=== PATIENT | female | born 1950 | race Caucasian/White ===

== ENCOUNTER 2017-08-16 09:50 | Emergency (ER) | payer MEDICARE ==
[~2017-08-16] VITALS: Ht 180.3 cm; Wt 101.2 kg
[~2017-08-16 09:50] MED LIST: ADVAIR 250-501 EACH; GLUCOTROL5 MG PO; LEVOTHYROXINE25 MCG PO; NORCO 10MG-325MG1 EA PO; PRILOSEC20 MG PO; PROMETHEGAN12.5 MG PO; VENTOLIN HFA18 GM
[2017-08-16] MEDS ORDERED: LANTUS 3ML100 UNITS/ (10:43)
[2017-08-16] MEDS ORDERED: XYZAL5 MG PO (11:02)
[2017-08-16] MEDS ORDERED: NASONEX17 GM (11:02)
[2017-08-16] MEDS ORDERED: BROMFED DM COU118 ML PO (11:02)
[2017-08-16 11:24] VITALS: BP 128/80
== END 2017-08-16 11:10 | disposition home or self-care (01) ==
LOC: FSED 09:50
DX: R50.9 Fever, unspecified (principal); R05 Cough; J00 Acute nasopharyngitis [common cold]; I10 Essential (primary) hypertension; E11.9 Type 2 diabetes mellitus without complications; J45.909 Unspecified asthma, uncomplicated
CPT/HCPCS: 87400; 99283

== ENCOUNTER 2018-06-25 20:13 | Observation (INO) | payer MEDICARE, OTHER ==
[~2018-06-25] VITALS: Ht 180.3 cm; Wt 99.8 kg
[2018-06-25 01:50] VITALS: BP 147/67
[~2018-06-25 20:13] MED LIST changes: +BASAGLAR SC; +BENTYL PO; +BENTYL10 MG/1 ML IV; +BROMFED DM COU118 ML PO; +CENTRUM SILVER1 EAC3 PO; +LANTUS 3ML100 UNITS/; +METOCLOPRAMIDE10 MG PO; +MONTELUKAST SOD10 MG PO; +NASONEX17 GM; +NOVOLOG100 UNIT/1 SC; +PANTOPRAZOLE SO40 MG PO; +VENTOLIN HFA18 GM INH; +XYZAL5 MG PO
--- OUTSIDE RECORDS SUMMARY | 2018-06-25 20:16 | XMS REPORT | Summary of Care ---
Author Author [facility] Address [address] [place] [address] Phone Unavailable Care Team Providers Care Printer Floor Covering Assistant Name Role Phone VELVET Lazar, PVAAN Unavailable Unavailable REJI Riley, THU Unavailable Unavailable MIKAYLA PHILIP [place], SHORTY AMARO Unavailable Unavailable MIKAYLA Riley, SHORTY Unavailable Unavailable Reji PHILIP, Thu Unavailable Unavailable JONNATHAN NI [place], MARTINEZ Unavailable Unavailable Unavailable Unavailable Functional Status Name Dates Details Functional status health issues are not documented Status: Name Dates Details Cognitive status health issues are not documented Status: Problems Name Dates Details Symptomatic menopausal or female climacteric states (627.2, N95.1) Status: Active Major depressive disorder, recurrent, moderate (296.32, F33.1) Status: Active Post-menopausal (V49.81, Z78.0) Status: Active Need for pneumococcal vaccination (V03.82, Z23) Status: Active 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, 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 Encounter for mini-mental status examination Status: Active Intermittent asthma (493.90, J45.20) Status: Active Flu vaccine need (V04.81, Z23) Status: Active Inflammatory polyarthritis (714.9, M06.4) Status: Active Annual physical exam (V70.0, Z00.00) Status: Active Chronic migraine (346.70, G43.709) Status: Active Fibromyalgia (729.1, M79.7) Status: Active Counseling regarding advanced directives and goals of care (V65.49, Z71.89) Status: Active GERD without esophagitis (530.81, K21.9) Status: Active Generalized osteoarthritis (715.00, M15.9) Status: Active Obstructive sleep apnea (327.23, G47.33) Status: Active Allergic bronchitis (493.90, J45.909) Status: Active Breast cancer screening (V76.10, Z12.31) Status: Active Diabetes mellitus type 2, uncontrolled (250.02, E11.65) Status: Active Peripheral neuropathy (356.9, G62.9) Status: Active Vitamin D deficiency, unspecified (268.9, E55.9) Status: Active Peripheral vertigo of both ears (386.10, H81.393) Status: Active Adverse reaction to SUNIL-I (angiotensin-converting enzyme inhibitor) (E942.6, T46.4X5A) Status: Active Mixed hyperlipidemia (272.2, E78.2) Status: Active 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, 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) Status: Active Iron deficiency anemia secondary to inadequate dietary iron intake (280.1, D50.8) Status: Active Acute bronchitis due to infection (466.0, J20.8) Status: Active Abnormal AST and ALT (790.4, R74.8) Status: Active Allergic rhinitis due to pollen (477.0, J30.1) Status: Active Essential (primary) hypertension (401.9, I10) Status: Active Acute UTI (599.0, N39.0) Status: Active Diabetic polyneuropathy associated with type 2 diabetes mellitus (250.60, E11.42) Status: Active Medications Name Dates Details Lantus SoloStar 100 UNIT/ML Subcutaneous Solution Pen-injector inject 30 U SC qHS MDD:50 U Quantity: 1 THU MENDOZA M.D. * Start : 12-Jun-2014 Active 5 x 3 ML Pen BD Pen Needle Diamante U/F 32G X 4 MM use as directed to inject insulin once daily * Quantity: 100 Refills: 1 THU MENDOZA M.D. * Start : 12-Jun-2014 Active HydroCHLOROthiazide 12.5 MG Oral Tablet Take 1 tab po daily if BP over 140 * Quantity: 90 Refills: 1 VELVET Forman.PAVAN Menendez * Start : 28-Dec-2015 Active Montelukast Sodium 10 MG Oral Tablet TAKE 1 TABLET AT BEDTIME. * Refills: 0 Active Ventolin HFA 108 (90 Base) MCG/ACT Inhalation Aerosol Solution INHALE 1 TO 2 PUFFS EVERY 4 TO 6 HOURS NEEDED. * Quantity: 1 Refills: 2 VELVET N.P., PAVAN Active 18 GM Inhaler Advair Diskus 250-50 MCG/DOSE Inhalation Aerosol Powder Breath Activated INHALE 1 PUFF TWICE DAILY...BRKFST & Supper. Rinse mouith after use. * Quantity: 1 Refills: 6 VELVET N.P., PAVAN Active 60 Inhaler Pack Azelastine HCl - 0.15 % Nasal Solution 1 spray each nostril BID for allergies * Quantity: 1 Refills: 8 VERDIN N.P., PAVAN * Start : 21-Jul-2017 Active 30 ML Convoy Btl Centrum Silver 50+Women Oral Tablet TAKE 1 TABLET DAILY. * Refills: 0 VERDIN N.P., PAVAN * Start : 21-Jul-2017 Active Sudafed PE Congestion 10 MG Oral Tablet TAKE 1 TABLET EVERY 4 HOURS NEEDED for head, sinus, ear congestion.. * Quantity: 60 Refills: 1 VELVET N.P., PAVAN * Start : 21-Jul-2017 Active Claritin 10 MG Oral Tablet 1 TAB ORALLY EVERY DAY FOR 3-4 WEEKS AT A TIME FOR ALLERGIES. REPEAT NEEDED. * Quantity: 33 Refills: 0 VELVET N.P., PAVAN * Start : 21-Jul-2017 Active GlipiZIDE 10 MG Oral Tablet TAKE 2 TABLET BY MOUTH WITH BREAKFAST AND 1 TABLET BY MOUTH WITH DINNER * Quantity: 90 Refills: 2 THU MENDOZA M.D. * Start : 16-Jun-2017 Active Pantoprazole Sodium 40 MG Oral Tablet Delayed Release TAKE 1 TABLET BY MOUTH EVERY DAY * Quantity: 90 Refills: 0 VELVET N.P., PAVAN * Start : 22-Nov-2016 Active Saeid Microlet Lancets Check BG 2x a day * Quantity: 200 Refills: 3 VELVET N.P., PAVAN * Start : 01-Jan-2014 Active Saeid Contour Next Test In Vitro Strip Check BG 2x a day * Quantity: 200 Refills: 1 THU MENDOZA M.D. * Start : 01-Jan-2014 Active Allergies and Adverse Reactions Name Dates Details Acetaminophen TABS (Allergy) Status: Active Baclofen TABS (Allergy) Status: Active Corgard TABS (Adverse Event) Reaction: Vomiting, Headache, Seizures Status: Active dexamethasone (Allergy) Status: Active Iodine SOLN (Allergy) Status: Active Naproxen TABS (Adverse Event) Reaction: Vomiting Status: Active Zoloft TABS (Adverse Event) Reaction: Other Status: Active Past Medical History Name Dates Details History of abdominal pain (V13.89, Z87.898) Status: Resolved History of Abdominal pain, LLQ (left lower quadrant) (789.04, R10.32) Status: Resolved History of allergic rhinitis (V12.69, Z87.09) Status: Resolved History of Boil (680.9, L02.92) Status: Resolved History of candidal vulvovaginitis (V13.29, Z86.19) Status: Resolved History of chest pain (V13.89, Z87.898) Status: Resolved History of Chronic pain (338.29, G89.29) Status: Resolved History of Common migraine without aura (346.10, G43.009) Status: Resolved History of Contusion of left hand (923.20, S60.222A) Status: Resolved History of Dandruff (690.18, L21.0) Status: Resolved History of Decreased urination (788.5, R34) Status: Resolved History of dizziness (V13.89, Z87.898) Status: Resolved History of excessive sweating (V13.89, Z87.898) Status: Resolved History of fatigue (V13.89, Z87.898) Status: Resolved History of fatigue (V13.89, Z87.898) Status: Resolved History of fibromyositis (V13.59, Z87.39) Status: Resolved History of Flushing (782.62, R23.2) Status: Resolved History of Furuncle of abdominal wall (680.2, L02.221) Status: Resolved History of Grief reaction (309.0, F43.20) Status: Resolved History of Hair loss (704.00, L65.9) Status: Resolved History of hearing loss (V12.49, Z86.69) Status: Resolved History of herpes simplex infection (V12.09, Z86.19) Status: Resolved History of Intermittent asthma (493.90, J45.20) Status: Resolved History of labyrinthitis (V12.49, Z86.69) Status: Resolved History of low back pain (V13.59, Z87.39) Status: Resolved History of Low back pain, episodic (724.2, M54.5) Status: Resolved History of Lower abdominal pain (789.09, R10.30) Status: Resolved History of Lyme disease (088.81, A69.20) Status: Resolved History of Migraine without status migrainosus, not intractable (346.90, G43.909) Status: Resolved History of mitral valve disorder (V12.59, Z86.79) Status: Resolved History of nausea (V12.79, Z87.898) Status: Resolved History of nausea and vomiting (V12.79, Z87.898) Status: Resolved History of Neck muscle spasm (728.85, M62.838) Status: Resolved History of neck pain (V13.59, Z87.39) Status: Resolved History of Nevus (216.9, D22.9) Status: Resolved History of onychomycosis (V12.09, Z86.19) Status: Resolved History of Other chronic gastritis (535.10, K29.50) Status: Resolved History of Pain in toe of right foot (729.5, M79.674) Status: Resolved History of Pain, foot, right, chronic (729.5, M79.671) Status: Resolved History of paronychia of finger (V13.3, Z87.2) Status: Resolved History of Pedal edema (782.3, R60.0) Status: Resolved History of Pulsatile tinnitus, left ear (388.30, H93.A2) Status: Resolved History of renal calculi (V13.01, Z87.442) Status: Resolved History of shortness of breath (V13.89, Z87.898) Status: Resolved History of Skin lesion (709.9, L98.9) Status: Resolved History of sleep apnea (V13.89, Z86.69) Status: Resolved History of tinea cruris (V12.09, Z86.19) Status: Resolved History of tinnitus (V12.49, Z86.69) Status: Resolved History of urinary urgency (V13.00, Z87.448) Status: Resolved 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, 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) Status: Resolved History of West Nile Virus infection (066.40, A92.30) Status: Resolved Personal history of asthma (V12.69, Z87.09) Status: Resolved Procedures Procedure Dates Details History of Tonsillectomy Completed History of Hemorrhoidectomy Completed History of Proximal Subtotal Pancreatectomy (Whipple Procedure) Completed History of Arterial Catheterization Completed History of Arthroscopy Ankle Right Completed History of Neuroplasty Decompression Median Nerve At Carpal Tunnel Completed Immunization Name Dates Details Pneumococcal polysaccharide vaccine, 23 valent on: Aug-2008 Influenza on: 23-May-2011 Zoster (Zostavax) on: 27-Dec-2011 Fluzone INJ Lot #: [id number] on: 12-May-2014 Fluzone Quadrivalent 0.5 ML Intramuscular Suspension Lot #: [id number] on: 01-Apr-2015 Prevnar 13 Intramuscular Suspension Lot #: [id number] on: 10-Apr-2015 Fluzone High-Dose SUSP Lot #: [id number] on: 24-Jun-2016 Pneumococcal polysaccharide vaccine, 23 valent Lot #: [id number] on: 09-Sep-2016 Fluzone Quadrivalent 0.5 ML Intramuscular Suspension Lot #: [id number] on: 21-Jul-2017 Fluzone Quadrivalent Intramuscular Suspension Lot #: [id number] on: 15-Aug-2017 Family History Name Dates Details Family history of Hypertension (V17.49) Status: Active Family history of Diabetes Mellitus (V18.0) Status: Active Family history of Coronary Artery Disease (V17.49) Status: Active Family history of arthritis (V17.7, Z82.61) Status: Active Name Dates Details Family history of Hypertension (V17.49) Status: Active Family history of Coronary Artery Disease (V17.49) Status: Active Family history of Cancer Status: Active Family history of Diabetes mellitus (250.00, E11.9) Status: Active Family history of Hyperthyroidism (242.90, E05.90) Status: Active Family history of arthritis (V17.7, Z82.61) Status: Active Name Dates Details Family history of Diabetes mellitus (250.00, E11.9) Status: Active Social History Name Dates Details - Status: Name Dates Details Former smoker Vital Signs Date Test Result Details No Known Vitals to report Results Date Description Value Details Results not documented Plan of Care Name Dates Details Planned Observations Planned Goals not documented Instructions Name Dates Details Instructions not documented Encounters Appointment; RAKESH MAGUIRE M.D. Encounter Diagnosis: Problem not documented On: 20-Oct-2015 13:00 Appointment; WALLY GARCIA P.A. Encounter Diagnosis: Problem not documented On: 28-Oct-2015 9:45 Appointment; THU MENDOZA M.D. Encounter Diagnosis: Problem not documented On: 11-Nov-2015 9:30 Appointment; WALLY GARCIA P.A. Encounter Diagnosis: Problem not documented On: 03-Dec-2015 10:15 Appointment; PEARL FELICIANO M.D. Encounter Diagnosis: Problem not documented On: 21-Dec-2015 9:00 Appointment; VIRAL ROSAS D.O. Encounter Diagnosis: Problem not documented On: 28-Dec-2015 12:30 Appointment; BETTY MIMS M.D. Encounter Diagnosis: Problem not documented On: 04-Jan-2016 10:30 Appointment; VIRAL ROSAS D.O. Encounter Diagnosis: Problem not documented On: 01-Feb-2016 10:15 Appointment; OSMAR BUSH M.D. Encounter Diagnosis: Problem not documented On: 17-Feb-2016 8:30 Appointment; VIRAL ROSAS D.O. Encounter Diagnosis: Problem not documented On: 29-Feb-2016 8:00 Appointment; ARAM OROZCO P.A. Encounter Diagnosis: Problem not documented On: 12-Mar-2016 9:30 Appointment; PAVAN VERDIN NP Encounter Diagnosis: Problem not documented On: 05-Apr-2016 7:45 Appointment; MARTINEZ DE SANTIAGO NP Encounter Diagnosis: Problem not documented On: 21-May-2016 11:30 Appointment; MARTINEZ DE SANTIAGO NP Encounter Diagnosis: Problem not documented On: 25-May-2016 13:45 Appointment; ASHISH WANG NP Encounter Diagnosis: Problem not documented On: 07-Jun-2016 14:30 Appointment; ASHISH WANG NP Encounter Diagnosis: Problem not documented On: 24-Jun-2016 15:30 Appointment; PAVAN VERDIN NP Encounter Diagnosis: Problem not documented On: 06-Jul-2016 7:30 Appointment; SUSANNAH RICHMOND M.D. Encounter Diagnosis: Problem not documented On: 18-Jul-2016 14:45 Appointment; THU MENDOZA M.D. Encounter Diagnosis: Problem not documented On: 27-Jul-2016 9:30 Appointment; MARTINEZ DE SANTIAGO NP Encounter Diagnosis: Problem not documented On: 06-Aug-2016 10:00 Appointment; MARTINEZ DE SANTIAGO NP Encounter Diagnosis: Problem not documented On: 12-Aug-2016 8:15 Appointment; RAKESH MAGUIRE M.D. Encounter Diagnosis: Problem not documented On: 17-Aug-2016 10:30 Appointment; MARTINEZ DE SANTIAGO NP Encounter Diagnosis: Problem not documented On: 09-Sep-2016 9:00 Appointment; PEARL FELICIANO M.D. Encounter Diagnosis: Problem not documented On: 21-Oct-2016 10:30 Appointment; THU MENDOZA M.D. Encounter Diagnosis: Problem not documented On: 26-Oct-2016 9:00 Appointment; WALLY GARCIA P.A. Encounter Diagnosis: Problem not documented On: 02-Jan-2017 13:30 Appointment; THU MENDOZA M.D. Encounter Diagnosis: Problem not documented On: 25-Jan-2017 13:00 Appointment; PEARL FELICIANO M.D. Encounter Diagnosis: Problem not documented On: 05-May-2017 15:00 Appointment; HAYDEN LANTIGUA M.D. Encounter Diagnosis: Problem not documented On: 07-Jul-2017 14:15 Appointment; ASHISH WANG NP Encounter Diagnosis: Problem not documented On: 17-Jul-2017 14:30 Appointment; [facility] ECHO Encounter Diagnosis: Problem not documented On: 21-Jul-2017 11:00 Appointment; PAVAN VERDIN NP Encounter Diagnosis: Problem not documented On: 21-Jul-2017 13:00 Appointment; MAGO SELBY M.D. Encounter Diagnosis: Problem not documented On: 31-Jul-2017 13:40 Appointment; [facility] NUCLEAR Encounter Diagnosis: Problem not documented On: 07-Aug-2017 11:45 Appointment; [facility] Encounter Diagnosis: Problem not documented On: 09-Aug-2017 11:00 Appointment; MAGO SELBY M.D. Encounter Diagnosis: Problem not documented On: 16-Aug-2017 8:40
--- OUTSIDE RECORDS SUMMARY | 2018-06-25 20:16 | XMS REPORT | Continuity of Care Document ---
Author Author [facility] Interface Address Unknown Phone Unavailable Problems Problem Status Onset Date Classification Date Reported Comments Source Medications Medication Details Route Status Patient Instructions Ordering Provider Order Date Source D-Methorphan Hb/P-Epd Hcl/Bpm (Bromfed Dm Cough Syrup) 118 Ml Syrup Every 4 Hours as needed for Cough Active [place] 08/16/2017 [facility] Levocetirizine Dihydrochloride (Xyzal) 5 Mg Tablet Daily Active [place] 08/16/2017 [facility] Mometasone Furoate (Nasonex) 17 Gm [place] Daily Active [place] 08/16/2017 [facility] Acetaminophen/Hydrocodone Bitart ([place] 10MG-325MG*) 1 Ea Tab Q4-6HRS Active [facility] Albuterol Sulfate (Ventolin Hfa) 18 Gm Hfa.aer.ad Active [facility] Fluticasone/Salmeterol (Advair 250-50 Diskus) 1 Each Disk.w.dev Active [facility] Glipizide (Glucotrol) 5 Mg Tablet Rt Daily Active [facility] Insulin Glargine (Lantus 3ML Pen) 100 Units/1 Ml Inj Active [facility] Levothyroxine Sodium 25 Mcg Tablet Rt Daily Active [facility] Omeprazole (Prilosec) 20 Mg Capsule.dr Rt Daily Active [facility] Promethazine Hcl (Promethegan) 12.5 Mg Supp Rt Daily Active [facility] Allergies, Adverse Reactions, Alerts Substance Category Reaction Severity Reaction type Status Date Reported Comments Source iodine Unknown Allergy to Substance Active 08/16/2017 [facility] Acetaminophen Unknown Allergy to Substance Active 08/16/2017 [facility] Methocarbamol affects my asthma Unknown Propensity to adverse reactions Active 08/16/2017 [facility] Baclofen decrease respirations Severe Allergy to Substance Active 08/16/2017 [facility] Nadolol Unknown Allergy to Substance Active 08/16/2017 [facility] Naproxen Unknown Allergy to Substance Active 08/16/2017 [facility] Sertraline Unknown Allergy to Substance Active 08/16/2017 [facility] Tizanidine afects liver - develops flu-like symptoms Intermediate Allergy to Substance Active 08/16/2017 [facility] Celecoxib does not work Unknown Allergy to Substance Active 08/16/2017 [facility] Sitagliptin swelling Severe Propensity to adverse reactions Active 08/16/2017 [facility] Canagliflozin swelling Unknown Propensity to adverse reactions Active 08/16/2017 [facility] Immunizations Immunization Date Given Site Status Last Updated Comments Source Results Order Name Results Value Reference Range Date Interpretation Comments Source Vital Signs Vital Sign Value Date Comments Source Encounters Location Location Details Encounter Type Encounter Number Reason For Visit Attending Provider ADM Date DC Date Status Source Departed Emergency Room [id number] CLEMENTINA MAHMOOD MD 08/16/2017 08/16/2017 [facility] Procedures Procedure Code Date Perfomer Comments Source
[2018-06-25] MEDS ORDERED: ASPIRIN 81 MG CHEW TAB PO ONE ×2 (20:45→23:45)
[2018-06-25 21:07] LABS: BASOPHILS # (AUTO) 0.1 (0.0-0.1); BASOPHILS % 0.7 % (0.0-1.0); EOSINOPHILS # (AUTO) 0.2 (0.0-0.4); EOSINOPHILS % 2.4 % (0.0-6.0); HEMATOCRIT 37.3 % (34.2-44.1); HEMOGLOBIN 12.3 g/dL (12.0-16.0); LYMPHOCYTES # (AUTO) 2.1 (1.0-3.2); LYMPHOCYTES % 31.2 % (18.0-39.1); MEAN CORPUSCULAR HEMOGLOBIN 26.3 pg (28-32); MEAN CORPUSCULAR VOLUME 79.9 fL (81-99); MONOCYTES # (AUTO) 0.3 (0.2-0.8); MONOCYTES % 4.1 % (4.4-11.3); NEUTROPHILS # (AUTO) 4.2 (2.1-6.9); NEUTROPHILS % 61.3 % (38.7-80.0); PLATELET COUNT 308 x10e3/uL (140-360); RED BLOOD COUNT 4.67 x10e6/uL (3.6-5.1); RED CELL DISTRIBUTION WIDTH 13.4 % (11.7-14.4)
--- NOTE | 2018-06-25 21:20 | Diagnostic Imaging Report ---
EXAMINATION: CHEST 2 VIEWS INDICATION: Chest pain with sweating COMPARISON: Chest x-ray 02/09/2009 FINDINGS: PA and lateral views TUBES and LINES: None. LUNGS: The diaphragms are flat. The lungs are well-inflated suggestive of COPD. There is no evidence of pneumonia or pulmonary edema. PLEURA: No pleural effusion or pneumothorax. HEART AND MEDIASTINUM: The heart is normal in size. The aorta is ectatic. BONES AND SOFT TISSUES: Fusion plate in the lower cervical spine is intact. The bones are diffusely demineralized. No focal osseous lesions. Soft tissues are unremarkable. UPPER ABDOMEN: No free air under the diaphragm. IMPRESSION: Pulmonary hyperinflation suggestive of COPD. No acute cardiopulmonary process. Signed by: Dr. Cholo Espinosa MD on 06/25/2018 9:17 PM
[2018-06-25 21:28] LABS: ALANINE AMINOTRANSFERASE 34 IU/L (0-55); ALBUMIN 3.7 g/dL (3.5-5.0); ALBUMIN/GLOBULIN RATIO 1.1 (0.8-2.0); ALKALINE PHOSPHATASE 110 IU/L (40-150); BLOOD UREA NITROGEN 8 mg/dL (7-26); BUN/CREATININE RATIO 11 (6-25); CALCIUM 9.3 mg/dL (8.4-10.2); CARBON DIOXIDE 23 mmol/L (22-29); CHLORIDE 106 mmol/L (98-107); CREATINE KINASE 60 IU/L (29-168); CREATININE, SERUM 0.72 mg/dL (0.57-1.11); EST GLOMERULAR FILTRATION RATE > 60 ML/MIN (60-); GLUCOSE 302 mg/dL (74-118); SODIUM 139 mmol/L (136-145)
[2018-06-25 23:42] LABS: CLARITY,URINE CLEAR (CLEAR); COLOR,URINE YELLOW (YELLOW)
[2018-06-25 23:43] LABS: BILIRUBIN,URINE NEGATIVE (NEGATIVE); KETONES,URINE NEGATIVE (NEGATIVE); LEUKOCYTE ESTERASE ,URINE 1+ (NEGATIVE); NITRITE,URINE NEGATIVE (NEGATIVE); PROTEIN,URINE DIPSTICK NEGATIVE (NEGATIVE); URINE UROBILINOGEN 0.2 mg/dL (0.2 - 1)
--- OUTSIDE RECORDS SUMMARY | 2018-06-25 23:44 | XMS REPORT ---
Author Author [facility] Address Unknown Phone Unavailable Care Team Providers Care Log Feeder Name Role Phone Kady REYNA Unavailable Unavailable Problems This patient has no known problems. Allergies, Adverse Reactions, Alerts This patient has no known allergies or adverse reactions. Medications This patient has no known medications. Results Test Description Test Time Test Comments Text Results Atomic Results Result Comments CHEST 2 VIEWS 2018-06-25 21:16:00 [place] [address] Patient Name: SAMMY PEÑA MR #: [id number] : 1950 Age/Sex: 67/F Req #: [id number] Adm Physician: Ordered by: SEJAL REYNA MD Report #: [id number] Location: ER Room/Bed: Procedure: [id number] DX/CHEST 2 VIEWS Exam Date: 06/25/18 Exam Time: 2100 REPORT STATUS: Signed EXAMINATION: CHEST 2 VIEWS INDICATION: Chest pain with sweating COMPARISON: Chest x-ray 02/09/2009 FINDINGS: PA and lateral views TUBES and LINES: None. LUNGS: The diaphragms are flat. The lungs are well-inflated suggestive of COPD. There is no evidence of pneumonia or pulmonary edema. PLEURA: No pleural effusion or pneumothorax. HEART AND MEDIASTINUM: The heart is normal in size. The aorta is ectatic. BONES AND SOFT TISSUES: Fusion plate in the lower cervical spine is intact. The bones are diffusely demineralized. No focal osseous lesions. Soft tissues are unremarkable. UPPER ABDOMEN: No free air under the diaphragm. IMPRESSION: Pulmonary hyperinflation suggestive of COPD. No acute cardiopulmonary process. Signed by: Dr. Comfort Espinosa MD on 06/25/2018 9:17 PM Dictated By: COMFORT ESPINOSA MD 16 Transcribed By: WALDO on 06/25/182116 COPY TO: SEJAL REYNA MD
[2018-06-25] MEDS ORDERED: MORPHINE SULFATE 2 MG/ML SYR IV PRN (23:45)
[2018-06-25] MEDS ORDERED: SODIUM CHLORIDE FLUSH 10 ML SYR INJ PRN (23:45)
[2018-06-25] MEDS ORDERED: NITROGLYCERIN 0.4 MG SUBL SL PRN (23:45)
[2018-06-25] MEDS ORDERED: DEXTROSE 50% SYRINGE 50 ML IV PRN (23:45)
[2018-06-25 23:59] LABS: BACTERIA,URINE FEW /HPF; EPITHELIAL CELLS,URINE MODERATE /LPF
[2018-06-26] VITALS (8 sets, daily range): BP systolic 107–147; BP diastolic 55–67
[2018-06-26] MEDS: FAMOTIDINE 20 MG/2 ML VIAL IV SCH ×2 (01:10→11:55)
[2018-06-26] MEDS ORDERED: MORPHINE SULFATE INJ 4 MG/ML INJ IV PRN (02:00)
[2018-06-26 06:59] LABS: CREATINE KINASE 46 IU/L (29-168)
[2018-06-26 07:21] LABS: CHOL/HDL RATIO 4.1 (3.0-3.6)
[2018-06-26] MEDS ORDERED: INSULIN REGULAR, HUMAN 100 UNIT/1 ML 3ML VIAL SQ SCH (07:30)
[2018-06-26] MEDS: ASPIRIN 81 MG ENTERIC COATED PO SCH (09:00)
--- NOTE | 2018-06-26 09:41 | NUR ---
pt resting in bed. family at bedside. pt refused aspirin, stated she is scheduled for colonoscopy and told to hold for [address] beal on unit, made aware.
[2018-06-26] MEDS ORDERED: ACETAMINOPHEN 325 MG TAB PO PRN (09:45)
[2018-06-26] MEDS ORDERED: ALBUTEROL SULFATE HFA 8GM INHALATION AEROSOL INH PRN (09:45)
--- NOTE | 2018-06-26 10:55 | NUR ---
CASE MANAGEMENT INITIAL ASSESSMENT Oncology Social Work to bedside to discuss plan of care with patient/family. CM/SW role and care transitions discussed. Anticipated discharge plan discussed along with duration of care. CM/SW discussed patients right to make decisions in care. CM/SW work hours given. Patient lives: TRA[facility] WITH 3 STEPS Admit/Transfer: VIA ED FROM HOME POA/Emergency contact: SALVADOR [phone] OR SISTER NISHA PERDOMO [phone] Current/Previous Home Health: NONE PCP/Follow-up Care: [facility] Current/Previous DME: NONE Other Services: NONE Employment Status: RETIRED Areas of Concerns: NONE Referral Needs: NONE Education Needs: NONE IMM/RIZVI given and signed (if applicable): NONE Goal for discharge: RETURN HOME WITH NO CURRENT NEEDS CM/SW left business card at the bedside with contact information. Name and number was also written on the patients whiteboard. Patient verbalized understanding of discussion. CM will follow-up with ongoing discharge and transition of care needs.
--- NOTE | 2018-06-26 11:37 | Consultation ---
DATE OF CONSULTATION: June 26, 2018 ATTENDING PHYSICIAN: Dr. Kowalski Thank you so much for asking me to see this nice lady in consultation. Ms. Kyle is a pleasant but complex 67-year-old woman with diabetes who presented to the emergency room with episodes of chest discomfort associated with perspiration. HISTORY OF PRESENT ILLNESS: The patient reports this is a new symptom, not like any other discomfort she has had in the past. She thinks she had several episodes during the day on the that lasted 3 or 4 minutes at a time, and she developed some perspiration as well. PAST MEDICAL HISTORY: Significant for longstanding, type-2, adult-onset diabetes. 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 She has history of migraines and sleep apnea. She had cardiac catheterization performed January 16, 2008, that was normal. She was felt to have mitral valve prolapse in the past. MEDICATIONS: Recent medications at home include: 1. Bentyl 20 mg t.i.d. 2. Advair inhaler. 3. Basaglar 35 units at bedtime. 4. Metoclopramide 10 mg daily. 5. NovoLog 6 units before each meal. 6. Protonix 40 mg daily. 7. Montelukast. 8. Albuterol inhaler. PHYSICAL EXAMINATION GENERAL: Exam at this time shows a pleasant, alert woman who is comfortable, 5 feet 11 inches tall, weighing 216 pounds. HEENT: Unremarkable. NECK: No jugular venous distention. THORAX: Heart sounds S1 and S2 are equal. No murmurs. LUNGS: Clear. ABDOMEN: Protuberant. Healed surgical scars. Normal bowel sounds. Nontender. EXTREMITIES: No cyanosis, clubbing or edema. LABORATORY STUDIES: Remarkable for initial glucose of 302 with repeat value of 175. White count normal. Troponins normal x2. Cholesterol 156. Urinalysis shows 3+ glucose and 11-20 white cells per high power field but with moderate epithelial cells seen as well. ASSESSMENT 1. Chest discomfort and perspiration, etiology not clear. 2. Type-2, adult-onset diabetes. 3. Possible urinary tract infection. PLAN: She did have cardiac catheterization 10 years ago. This could still represent coronary disease with new-onset angina. Will check echocardiogram and Cardiolite. Will follow her closely with you. Thank you for asking me to see her in consultation. Job#: [id number] MELVA
[2018-06-26] MEDS: INSULIN LISPRO 100 UNIT/1 ML 3ML VIAL SQ SCH ×2 (11:55→16:30)
[2018-06-26] MEDS: ONDANSETRON HCL INJ 2 MG/ML VIAL IV PRN ×2 (11:55→18:32)
--- NOTE | 2018-06-26 12:01 | NUR ---
consent obtained for stress test
--- NOTE | 2018-06-26 12:13 | NUR ---
pt requested pain medication. educated iv med removed this morning, only Tylenol and nitro available. pt refused, stated they dont do anything for her headache and nitro gives her a headache.
[2018-06-26 14:46] LABS: CREATINE KINASE 46 IU/L (29-168)
[2018-06-26] MEDS: ACETAMINOPHEN/ASPIRIN/CAFFEINE 1 EA TAB PO PRN (18:32)
[2018-06-26] MEDS: SALMETEROL/FLUTICASONE 250/50 INH SCH (19:00)
[2018-06-26] MEDS: INSULIN DETEMIR 100 UNIT/ML PEN SQ SCH (21:26)
[2018-06-26] MEDS: MONTELUKAST SODIUM 10 MG TAB PO SCH (21:26)
[2018-06-27] VITALS (8 sets, daily range): BP systolic 117–137; BP diastolic 53–67
[2018-06-27] MEDS: FAMOTIDINE 20 MG/2 ML VIAL IV SCH ×3 (05:34→17:29)
[2018-06-27] MEDS: PANTOPRAZOLE SOD 40 MG TABEC PO SCH (07:30)
[2018-06-27] MEDS: INSULIN LISPRO 100 UNIT/1 ML 3ML VIAL SQ SCH ×3 (07:30→17:19)
--- NOTE | 2018-06-27 07:32 | NUR ---
pt resting in bed, no s/s distress. pending stress test today. will continue to monitor.
[2018-06-27] MEDS: ASPIRIN 81 MG ENTERIC COATED PO SCH (07:44)
[2018-06-27] MEDS: SALMETEROL/FLUTICASONE 250/50 INH SCH ×2 (08:00→19:59)
[2018-06-27] MEDS: ONDANSETRON HCL INJ 2 MG/ML VIAL IV PRN ×3 (10:45→21:51)
[2018-06-27] MEDS ORDERED: REGADENOSON 0.4 MG/5 ML SYR IV ONE (10:52)
[2018-06-27] MEDS: ACETAMINOPHEN/ASPIRIN/CAFFEINE 1 EA TAB PO PRN ×3 (14:30→21:51)
--- NOTE | 2018-06-27 19:18 | NUR ---
per dr glynn, pt may dc from cardio stand point. paged attending. passed info in report. pt stable
--- NOTE | 2018-06-27 19:19 | NUR ---
Report received and walking rounds complete. Pt resting in bed and in no apparent distress. Pt has tele and no complaints of chest pain. All safety measures ensured, bed alarm on, and pt call schneider near. Pt encouraged to use call schneider for assistance.
[2018-06-27] MEDS: MONTELUKAST SODIUM 10 MG TAB PO SCH (20:39)
[2018-06-27] MEDS: INSULIN DETEMIR 100 UNIT/ML PEN SQ SCH (20:40)
--- NOTE | 2018-06-27 21:14 | NUR ---
Dr. Kowalski called x 2 on day shift for ok'd to be d/c. Pt cleared from cardiac standpoint by Dr Villanueva. contacted again but no return call. Pt aware and will try to reach MD again in am.
[2018-06-28] VITALS: BP 117/56
[2018-06-28 04:00] VITALS: BP 104/51
[2018-06-28] MEDS: FAMOTIDINE 20 MG/2 ML VIAL IV SCH (05:14)
--- NOTE | 2018-06-28 06:29 | NUR ---
repeat call made to Dr. Kowalski
--- NOTE | 2018-06-28 07:05 | NUR ---
rounded with the landscaping specialist nurse, patient aware of change, in no distress. Call schneider within reach and bed in lowest position
[2018-06-28] MEDS: SALMETEROL/FLUTICASONE 250/50 INH SCH (07:30)
--- NOTE | 2018-06-28 07:39 | NUR ---
report given to oncoming nurse
[2018-06-28 08:20] VITALS: BP 112/55
[2018-06-28 09:00] VITALS: BP 112/55
[2018-06-28] MEDS: INSULIN LISPRO 100 UNIT/1 ML 3ML VIAL SQ SCH (09:04)
[2018-06-28] MEDS: PANTOPRAZOLE SOD 40 MG TABEC PO SCH (09:04)
[2018-06-28] MEDS: ASPIRIN 81 MG ENTERIC COATED PO SCH (09:04)
[2018-06-28 11:00] VITALS: BP 127/59
--- NOTE | 2018-06-28 11:48 | NUR ---
discharge instructions given to patient, patient verbalized understanding. IV discontinued at this time, catheter in tact, small bandage placed. patient wheeled from floor to personal auto for granddaughter to drive home.
== END 2018-06-28 11:52 | disposition home or self-care (01) ==
LOC: ER 20:13 → ERHOLD 23:41 → IMCU 06-26 01:15
PROVIDERS: ADMIT Internal Medicine; ATTEND Internal Medicine
DX: R07.89 Other chest pain (principal); E11.9 Type 2 diabetes mellitus without complications; K21.9 Gastro-esophageal reflux disease without esophagitis; Z79.4 Long term (current) use of insulin
CPT/HCPCS: 36415 ×4; 71046; 78452; 80053; 80061; 81001; 82550 ×2; 82553 ×2; 82948 ×3; 84484 ×2; 85025; 87086; 93005; 93017; 93306; 94640 ×2; 99284; A9502; G0378 ×4; J2270; J2405 ×2; J2785; S0164

== ENCOUNTER → 2020-11-04 | Outpatient (CLI) | payer OTHER ==
[2020-11-04 12:26] LABS: ALBUMIN 3.7 g/dL (3.5-5.0); BILIRUBIN,DIRECT 0.3 mg/dL (0.0-0.5)
== END ==
LOC: LAB 11:39
PROVIDERS: ATTEND Podiatrist Foot & Ankle Surgery
DX: B35.1 Tinea unguium (principal)
CPT/HCPCS: 36415; 80076

== ENCOUNTER 2021-03-25 11:51 | Inpatient (IN) | payer MEDICARE, OTHER ==
[~2021-03-25] VITALS: Ht 180.3 cm; Wt 99.8 kg
[2021-03-25] MEDS ORDERED: SODIUM CHLORIDE 0.9% 1000ML 1,000 ML IV STA (12:24)
[2021-03-25] MEDS ORDERED: ASPIRIN 81 MG CHEW TAB PO ONE (12:30)
[2021-03-25] MEDS ORDERED: ALBUTEROL SULFATE HFA 8GM INHALATION AEROSOL INH PRN (12:30)
[2021-03-25] MEDS ORDERED: ONDANSETRON HCL INJ 2MG/ML 2ML 2 MG/ML VIAL IV STA (12:55)
[2021-03-25] MEDS ORDERED: ACETAMINOPHEN 325 MG TAB PO ONE (13:00)
[2021-03-25 13:19] LABS: INR 0.94; PROTHROMBIN TIME 12.8 seconds (11.9-14.5)
[2021-03-25 13:20] LABS: PARTIAL THROMBOPLASTIN TIME 36.7 seconds (23.8-35.5)
[2021-03-25 13:24] LABS: CLARITY,URINE SL CLOUDY (CLEAR); COLOR,URINE YELLOW (YELLOW); LEUKOCYTE ESTERASE ,URINE MODERATE (NEGATIVE); NITRITE,URINE NEGATIVE (NEGATIVE)
[2021-03-25 13:25] LABS: KETONES,URINE NEGATIVE (NEGATIVE); PROTEIN,URINE DIPSTICK 1+ (NEGATIVE)
[2021-03-25 13:28] LABS: BACTERIA,URINE MANY /HPF; EPITHELIAL CELLS,URINE MODERATE /LPF; RBC,URINE 0-5 /HPF (0-5); WBC,URINE (MAN) >50 /HPF (0-5)
[2021-03-25 13:29] LABS: BASOPHILS % 0.2 % (0.0-1.0); HEMATOCRIT 36.6 % (34.2-44.1); HEMOGLOBIN 11.4 g/dL (12.0-16.0); LYMPHOCYTES # (AUTO) 0.7 (1.0-3.2); LYMPHOCYTES % 14.4 % (18.0-39.1); MEAN CORPUSCULAR HEMOGLOBIN 25.3 pg (28-32); MEAN CORPUSCULAR HGB CONC 31.1 g/dL (31-35); MEAN CORPUSCULAR VOLUME 81.3 fL (81-99); MONOCYTES # (AUTO) 0.1 (0.2-0.8); MONOCYTES % 1.9 % (4.4-11.3); NEUTROPHILS # (AUTO) 3.9 (2.1-6.9); NEUTROPHILS % 83.3 % (38.7-80.0); PLATELET COUNT 229 x10e3/uL (140-360); RED CELL DISTRIBUTION WIDTH 13.7 % (11.7-14.4)
[2021-03-25 13:37] LABS: ALBUMIN 3.1 g/dL (3.5-5.0); ALBUMIN/GLOBULIN RATIO 0.9 (0.8-2.0); ANION GAP 13.6 mmol/L (8-16); CALCIUM 8.5 mg/dL (8.4-10.2); CREATININE, SERUM 0.77 mg/dL (0.57-1.11); MAGNESIUM 1.9 MG/DL (1.3-2.1); POTASSIUM 3.6 mmol/L (3.5-5.1)
[2021-03-25 13:44] LABS: CREATINE KINASE MB 2.3 ng/mL (0-5.0)
[2021-03-25] MEDS ORDERED: PIPERACILLIN/TAZOBACTAM 3.375 GM in SODIUM CHLORIDE 0.9% 50ML 50 ML IV STA (14:10)
[2021-03-25 14:20] LABS: B-TYPE NATRIURETIC PEPTIDE2 47.2 pg/mL (0-100)
[2021-03-25] MEDS ORDERED: CEFTRIAXONE 1 GM VIAL INJ ONE (14:30)
[2021-03-25] MEDS ORDERED: CEFTRIAXONE 1 GM in SODIUM CHLORIDE 0.9% 50ML 50 ML IV ONE (14:30)
[2021-03-25] MEDS ORDERED: DEXAMETHASONE SOD PHOS 10 MG/1 ML VIAL IV ONE (14:30)
[2021-03-25] MEDS ORDERED: ENOXAPARIN SODIUM INJ 100 MG/ML SYR SC SCH (15:00)
[2021-03-25] MEDS ORDERED: PROMETHAZINE HCL (IM) 25 MG/ML VIAL IM ONE (15:15)
[2021-03-25] MEDS ORDERED: PROMETHAZINE 25MG/SOD CHL 0.9% 50 ML IV ONE (15:25)
[2021-03-25] MEDS ORDERED: DEXTROSE 50% SYRINGE 50 ML IV PRN (22:30)
[2021-03-25] MEDS: MONTELUKAST SODIUM 10 MG TAB PO SCH (23:20)
[2021-03-25] MEDS: ONDANSETRON HCL INJ 2MG/ML 2ML 2 MG/ML VIAL IV PRN (23:32)
[2021-03-26] VITALS (7 sets, daily range): BP systolic 105–115; BP diastolic 42–52
[2021-03-26] MEDS: INSULIN LISPRO 100 UNIT/1 ML 3ML VIAL SQ SCH ×7 (07:30→22:24)
[2021-03-26] MEDS: PANTOPRAZOLE SOD 40 MG TABEC PO SCH (07:53)
[2021-03-26] MEDS: METOCLOPRAMIDE HCL 10 MG TAB PO SCH (08:12)
[2021-03-26] MEDS: DICYCLOMINE HCL 20 MG TAB PO SCH ×3 (08:12→20:19)
[2021-03-26] MEDS: MULTIVITAMINS/MINERALS TAB PO SCH (08:12)
[2021-03-26] MEDS: DEXAMETHASONE SOD PHOS INJ 4 MG/ML SDV IV SCH (08:12)
[2021-03-26] MEDS: ENOXAPARIN 30 MG/0.3 ML SYR SC SCH ×2 (08:13→20:19)
[2021-03-26] MEDS ORDERED: REMDESIVIR 200MG 200 MG in SODIUM CHLORIDE 0.9% 100 ML IV ONE (09:00)
[2021-03-26] MEDS: SALMETEROL/FLUTICASONE 250/50 INH SCH ×2 (09:00→17:00)
[2021-03-26] MEDS ORDERED: SODIUM CHLORIDE 0.9% 250ML 250 ML ONE (13:26)
[2021-03-26] MEDS: ONDANSETRON HCL INJ 2MG/ML 2ML 2 MG/ML VIAL IV PRN ×2 (13:48→22:35)
[2021-03-26] MEDS: CEFTRIAXONE 1 GM in SODIUM CHLORIDE 0.9% 50ML 50 ML IV SCH (13:48)
[2021-03-26] MEDS: PROMETHAZINE 12.5MG/ NACL 0.9% 12.5 MG/50 ML BAG IV PRN (15:47)
[2021-03-26] MEDS: MONTELUKAST SODIUM 10 MG TAB PO SCH (20:19)
[2021-03-26] MEDS ORDERED: BENZONATATE 100 MG CAP PO PRN (22:15)
[2021-03-26] MEDS: INSULIN GLARGINE 100 UNITS/ML VIAL SQ SCH (22:24)
[2021-03-27] VITALS (8 sets, daily range): BP systolic 106–129; BP diastolic 42–66
[2021-03-27] MEDS: PROMETHAZINE 12.5MG/ NACL 0.9% 12.5 MG/50 ML BAG IV PRN (04:08)
[2021-03-27] MEDS: SALMETEROL/FLUTICASONE 250/50 INH SCH ×2 (09:00→17:00)
[2021-03-27] MEDS ORDERED: REMDESIVIR 100MG 100 MG in SODIUM CHLORIDE 0.9% 100 ML IV SCH (09:00)
[2021-03-27] MEDS: MULTIVITAMINS/MINERALS TAB PO SCH (09:52)
[2021-03-27] MEDS: METOCLOPRAMIDE HCL 10 MG TAB PO SCH (09:52)
[2021-03-27] MEDS: ENOXAPARIN 30 MG/0.3 ML SYR SC SCH ×2 (09:52→20:22)
[2021-03-27] MEDS: PANTOPRAZOLE SOD 40 MG TABEC PO SCH (09:52)
[2021-03-27] MEDS: DICYCLOMINE HCL 20 MG TAB PO SCH ×3 (09:52→20:22)
[2021-03-27] MEDS: DEXAMETHASONE SOD PHOS INJ 4 MG/ML SDV IV SCH (09:52)
[2021-03-27] MEDS: INSULIN LISPRO 100 UNIT/1 ML 3ML VIAL SQ SCH ×7 (11:33→21:29)
[2021-03-27] MEDS: REMDESIVIR 100MG 100 MG in SODIUM CHLORIDE 0.9% 100 ML IV SCH (11:45)
[2021-03-27] MEDS: CEFTRIAXONE 1 GM in SODIUM CHLORIDE 0.9% 50ML 50 ML IV SCH (13:31)
[2021-03-27] MEDS: ONDANSETRON HCL INJ 2MG/ML 2ML 2 MG/ML VIAL IV PRN ×2 (13:31→23:18)
[2021-03-27] MEDS: MONTELUKAST SODIUM 10 MG TAB PO SCH (20:22)
[2021-03-27] MEDS: INSULIN GLARGINE 100 UNITS/ML VIAL SQ SCH (21:30)
[2021-03-27] MEDS: MELATONIN 5 MG TABLET PO SCH (23:48)
[2021-03-28] VITALS (8 sets, daily range): BP systolic 114–123; BP diastolic 51–64
[2021-03-28] MEDS: ONDANSETRON HCL INJ 2MG/ML 2ML 2 MG/ML VIAL IV PRN ×2 (05:21→23:24)
[2021-03-28 06:40] LABS: HEMATOCRIT 34.8 % (34.2-44.1); HEMOGLOBIN 10.8 g/dL (12.0-16.0); LYMPHOCYTES % 22.7 % (18.0-39.1); MEAN CORPUSCULAR HEMOGLOBIN 25.1 pg (28-32); MEAN CORPUSCULAR VOLUME 80.7 fL (81-99); MONOCYTES # (AUTO) 0.3 (0.2-0.8); MONOCYTES % 8.1 % (4.4-11.3); NEUTROPHILS # (AUTO) 2.9 (2.1-6.9); NEUTROPHILS % 68.7 % (38.7-80.0); PLATELET COUNT 221 x10e3/uL (140-360); RED BLOOD COUNT 4.31 x10e6/uL (3.6-5.1); RED CELL DISTRIBUTION WIDTH 13.5 % (11.7-14.4)
[2021-03-28 07:18] LABS: ANION GAP 11.9 mmol/L (8-16); CALCIUM 7.8 mg/dL (8.4-10.2); CREATININE, SERUM 0.66 mg/dL (0.57-1.11); POTASSIUM 3.9 mmol/L (3.5-5.1)
[2021-03-28] MEDS: SALMETEROL/FLUTICASONE 250/50 INH SCH ×2 (09:00→17:00)
[2021-03-28] MEDS: DEXAMETHASONE SOD PHOS INJ 4 MG/ML SDV IV SCH (09:07)
[2021-03-28] MEDS: PANTOPRAZOLE SOD 40 MG TABEC PO SCH (09:08)
[2021-03-28] MEDS: METOCLOPRAMIDE HCL 10 MG TAB PO SCH (09:09)
[2021-03-28] MEDS: DICYCLOMINE HCL 20 MG TAB PO SCH ×3 (09:11→21:22)
[2021-03-28] MEDS: INSULIN LISPRO 100 UNIT/1 ML 3ML VIAL SQ SCH ×7 (09:11→21:25)
[2021-03-28] MEDS: MULTIVITAMINS/MINERALS TAB PO SCH (09:11)
[2021-03-28] MEDS: ENOXAPARIN 30 MG/0.3 ML SYR SC SCH ×2 (09:12→21:22)
[2021-03-28] MEDS: REMDESIVIR 100MG 100 MG in SODIUM CHLORIDE 0.9% 100 ML IV SCH (11:45)
[2021-03-28] MEDS: PROMETHAZINE 12.5MG/ NACL 0.9% 12.5 MG/50 ML BAG IV PRN (12:25)
[2021-03-28] MEDS: CEFTRIAXONE 1 GM in SODIUM CHLORIDE 0.9% 50ML 50 ML IV SCH (13:40)
[2021-03-28] MEDS: MONTELUKAST SODIUM 10 MG TAB PO SCH (21:22)
[2021-03-28] MEDS: MELATONIN 5 MG TABLET PO SCH (21:22)
[2021-03-28] MEDS: INSULIN GLARGINE 100 UNITS/ML VIAL SQ SCH (21:25)
[2021-03-28] MEDS: ACETAMINOPHEN 325 MG TAB PO PRN (23:19)
[2021-03-29] VITALS (8 sets, daily range): BP systolic 113–127; BP diastolic 52–64
[2021-03-29] MEDS: INSULIN LISPRO 100 UNIT/1 ML 3ML VIAL SQ SCH ×7 (07:30→20:49)
[2021-03-29] MEDS: SALMETEROL/FLUTICASONE 250/50 INH SCH ×2 (09:00→17:00)
[2021-03-29] MEDS: DICYCLOMINE HCL 20 MG TAB PO SCH ×3 (10:19→20:49)
[2021-03-29] MEDS: PANTOPRAZOLE SOD 40 MG TABEC PO SCH (10:19)
[2021-03-29] MEDS: MULTIVITAMINS/MINERALS TAB PO SCH (10:19)
[2021-03-29] MEDS: METOCLOPRAMIDE HCL 10 MG TAB PO SCH (10:20)
[2021-03-29] MEDS: DEXAMETHASONE SOD PHOS INJ 4 MG/ML SDV IV SCH (10:22)
[2021-03-29] MEDS: REMDESIVIR 100MG 100 MG in SODIUM CHLORIDE 0.9% 100 ML IV SCH (11:45)
[2021-03-29] MEDS: CEFTRIAXONE 1 GM in SODIUM CHLORIDE 0.9% 50ML 50 ML IV SCH (12:16)
[2021-03-29] MEDS ORDERED: SODIUM CHLORIDE 0.9% 250ML 250 ML ONE (13:21)
[2021-03-29] MEDS: APIXAB 2.5 MG TABLET PO SCH (16:34)
[2021-03-29] MEDS: ACETAMINOPHEN 325 MG TAB PO PRN (18:30)
[2021-03-29] MEDS: MELATONIN 5 MG TABLET PO SCH (20:49)
[2021-03-29] MEDS: MONTELUKAST SODIUM 10 MG TAB PO SCH (20:49)
[2021-03-29] MEDS: INSULIN GLARGINE 100 UNITS/ML VIAL SQ SCH (20:49)
[2021-03-30] VITALS (8 sets, daily range): BP systolic 112–142; BP diastolic 48–72
[2021-03-30] MEDS: ONDANSETRON HCL INJ 2MG/ML 2ML 2 MG/ML VIAL IV PRN ×3 (04:51→21:38)
[2021-03-30 06:01] LABS: BASOPHILS % 0.2 % (0.0-1.0); EOSINOPHILS % 0.4 % (0.0-6.0); HEMATOCRIT 35.7 % (34.2-44.1); HEMOGLOBIN 11.2 g/dL (12.0-16.0); LYMPHOCYTES # (AUTO) 1.1 (1.0-3.2); LYMPHOCYTES % 20.4 % (18.0-39.1); MEAN CORPUSCULAR HEMOGLOBIN 25.3 pg (28-32); MEAN CORPUSCULAR HGB CONC 31.4 g/dL (31-35); MEAN CORPUSCULAR VOLUME 80.8 fL (81-99); MONOCYTES # (AUTO) 0.4 (0.2-0.8); NEUTROPHILS # (AUTO) 3.6 (2.1-6.9); NEUTROPHILS % 70.2 % (38.7-80.0); PLATELET COUNT 236 x10e3/uL (140-360); RED BLOOD COUNT 4.42 x10e6/uL (3.6-5.1); RED CELL DISTRIBUTION WIDTH 13.2 % (11.7-14.4)
[2021-03-30 06:34] LABS: ANION GAP 12.6 mmol/L (8-16); CALCIUM 7.7 mg/dL (8.4-10.2); CREATININE, SERUM 0.56 mg/dL (0.57-1.11); POTASSIUM 3.6 mmol/L (3.5-5.1)
[2021-03-30] MEDS: INSULIN LISPRO 100 UNIT/1 ML 3ML VIAL SQ SCH ×7 (07:30→20:48)
[2021-03-30 08:15] LABS: LYMPHOCYTES % (MANUAL) 12 % (19-48); MONOCYTES % (MANUAL) 9 % (3.4-9.0); NEUTROPHILS % (MANUAL) 78 % (40-74); PLATELET ESTIMATE ADEQUATE; PLATELET MORPHOLOGY COMMENT NORMAL; RBC MORPHOLOGY COMMENT NORMAL
[2021-03-30] MEDS: PANTOPRAZOLE SOD 40 MG TABEC PO SCH (09:15)
[2021-03-30] MEDS: DICYCLOMINE HCL 20 MG TAB PO SCH ×3 (09:16→20:38)
[2021-03-30] MEDS: DEXAMETHASONE SOD PHOS INJ 4 MG/ML SDV IV SCH (09:16)
[2021-03-30] MEDS: APIXAB 2.5 MG TABLET PO SCH ×2 (09:17→16:50)
[2021-03-30] MEDS: METOCLOPRAMIDE HCL 10 MG TAB PO SCH (09:17)
[2021-03-30] MEDS: MULTIVITAMINS/MINERALS TAB PO SCH (09:17)
[2021-03-30] MEDS: CEFTRIAXONE 1 GM in SODIUM CHLORIDE 0.9% 50ML 50 ML IV SCH (13:05)
[2021-03-30] MEDS: MELATONIN 5 MG TABLET PO SCH (20:38)
[2021-03-30] MEDS: MONTELUKAST SODIUM 10 MG TAB PO SCH (20:38)
[2021-03-30] MEDS: INSULIN GLARGINE 100 UNITS/ML VIAL SQ SCH (20:48)
[2021-03-31] VITALS: BP 124/103
[2021-03-31 05:41] VITALS: BP 131/63
[2021-03-31] MEDS: INSULIN LISPRO 100 UNIT/1 ML 3ML VIAL SQ SCH ×2 (07:30→09:41)
[2021-03-31 08:18] VITALS: BP 133/60
[2021-03-31 08:25] VITALS: BP 133/60
[2021-03-31] MEDS: PANTOPRAZOLE SOD 40 MG TABEC PO SCH (09:31)
[2021-03-31] MEDS: DEXAMETHASONE SOD PHOS INJ 4 MG/ML SDV IV SCH (09:32)
[2021-03-31] MEDS: MULTIVITAMINS/MINERALS TAB PO SCH (09:33)
[2021-03-31] MEDS: DICYCLOMINE HCL 20 MG TAB PO SCH (09:33)
[2021-03-31] MEDS: APIXAB 2.5 MG TABLET PO SCH (09:33)
[2021-03-31] MEDS: ACETAMINOPHEN 325 MG TAB PO PRN (09:34)
[2021-03-31] MEDS: METOCLOPRAMIDE HCL 10 MG TAB PO SCH (09:34)
[2021-03-31] MEDS: ONDANSETRON HCL INJ 2MG/ML 2ML 2 MG/ML VIAL IV PRN (11:15)
== END 2021-03-31 13:25 | disposition home or self-care (01) | DRG 871 ==
LOC: ER 12:00 → ERHOLD 14:34 → MED/SURG3 03-26 12:58
PROVIDERS: ADMIT Internal Medicine; ATTEND Internal Medicine
PROC: 8E0ZXY6 Isolation (ICD-10-PCS; principal; 2021-03-25)
PROC: XW033E5 Introduction of Remdesivir Anti-infective into Peripheral Vein, Percutaneous Approach, New Technology Group 5 (ICD-10-PCS; 2021-03-27)
DX: A41.89 Other specified sepsis (principal); U07.1 COVID-19; J12.82 Pneumonia due to coronavirus disease 2019; J96.01 Acute respiratory failure with hypoxia; N39.0 Urinary tract infection, site not specified; G47.33 Obstructive sleep apnea (adult) (pediatric); K76.0 Fatty (change of) liver, not elsewhere classified; K21.9 Gastro-esophageal reflux disease without esophagitis; E11.9 Type 2 diabetes mellitus without complications; M79.7 Fibromyalgia
CPT/HCPCS: 36415; 71250; 78580; 80048; 80053; 81001; 82550; 82553; 82948; 83605; 83735; 83880; 84484; 85025; 85379; 85610; 85730; 86140; 87040; 93005; 96372; 99284; A9540; J0456; J0696; J1100; J1650; J1815; J2405; J2550; J7030; J7050; U0002